=== PATIENT | male | born 1980 | race Hispanic/Latino ===

== ENCOUNTER 2019-01-17 10:04 | Emergency (ER) | payer OTHER ==
[~2019-01-17] VITALS: Ht 177.8 cm; Wt 80.0 kg
[2019-01-17] MEDS ORDERED: CEPHALEXIN500 M1 PO (10:22)
[2019-01-17 11:58] VITALS: BP 122/88
== END 2019-01-17 12:07 | disposition home or self-care (01) ==
LOC: ED 10:04
DX: S81.812A Laceration without foreign body, left lower leg, initial encounter (principal); W22.8XXA Striking against or struck by other objects, initial encounter; Y93.H2 Activity, gardening and landscaping; Y92.007 Garden or yard of unspecified non-institutional (private) residence as the place of occurrence of the external cause